=== PATIENT | male | born 1980 | race African-American/Black ===

== ENCOUNTER 2016-12-28 12:59 | Emergency (ER) | payer SELFPAY ==
[~2016-12-28] VITALS: Ht 185.4 cm; Wt 109.0 kg
[2016-12-28 13:24] VITALS: BP 191/108
== END 2016-12-28 16:56 | disposition left against medical advice (07) ==
LOC: ER 13:50
DX: Z53.21 Procedure and treatment not carried out due to patient leaving prior to being seen by health care provider (principal)

== ENCOUNTER 2017-03-08 12:54 | Emergency (ER) | payer MEDICAID ==
[~2017-03-08] VITALS: Ht 182.9 cm; Wt 109.0 kg
[2017-03-08] MEDS ORDERED: IBUPROFEN 800MG TABLET PO ONE (14:15)
[2017-03-08 15:11] VITALS: BP 116/88
== END 2017-03-08 15:12 | disposition home or self-care (01) ==
LOC: ER 14:37
DX: S39.012A Strain of muscle, fascia and tendon of lower back, initial encounter (principal); V49.49XA Driver injured in collision with other motor vehicles in traffic accident, initial encounter; Y93.89 Activity, other specified; Y92.410 Unspecified street and highway as the place of occurrence of the external cause; R03.0 Elevated blood-pressure reading, without diagnosis of hypertension
CPT/HCPCS: 99282

== ENCOUNTER 2018-09-16 00:37 | Emergency (ER) | payer MEDICAID ==
[~2018-09-16] VITALS: Ht 185.4 cm; Wt 118.0 kg
[2018-09-16] MEDS ORDERED: LORAZEPAM 0.5MG TABLET PO ONE (06:30)
[2018-09-16 06:35] VITALS: BP 155/78
== END 2018-09-16 08:36 | disposition home or self-care (01) ==
LOC: ER 00:37
DX: F41.1 Generalized anxiety disorder (principal); I10 Essential (primary) hypertension; F20.9 Schizophrenia, unspecified; Z90.49 Acquired absence of other specified parts of digestive tract
CPT/HCPCS: 99284

== ENCOUNTER 2018-09-25 17:04 | Emergency (ER) | payer MEDICAID ==
[~2018-09-25] VITALS: Ht 185.4 cm; Wt 132.0 kg
[2018-09-26] MEDS ORDERED: IBUPROFEN 600MG TABLET PO ONE (00:30)
[2018-09-26 00:56] LABS: CLARITY URINE CLEAR (CLEAR); COLOR URINE YELLOW (YELLOW); KETONES URINE TRACE (NEGATIVE); LEUKOCYTE ESTERASE URINE 1+ (NEGATIVE); NITRITE URINE NEGATIVE (NEGATIVE); OCCULT BLOOD URINE NEGATIVE (NEGATIVE); PH URINE 5.5 (4.5-8.0); PROTEIN URINE 1+ (NEGATIVE); SPECIFIC GRAVITY URINE 1.028 (1.005-1.030)
[2018-09-26 01:07] LABS: *AMPHETAMINES SCREEN URINE NEGATIVE (NEGATIVE); *BARBITURATES SCREEN URINE NEGATIVE (NEGATIVE); *BENZODIAZEPINES SCREEN URINE NEGATIVE (NEGATIVE); *COCAINE SCREEN URINE NEGATIVE (NEGATIVE); METHADONE URINE SCREEN NEGATIVE (NEGATIVE)
[2018-09-26 01:08] LABS: CANNABINOID URINE SCREEN NEGATIVE (NEGATIVE); OPIATES URINE SCREEN NEGATIVE (NEGATIVE); PHENCYCLIDINE URINE SCREEN NEGATIVE (NEGATIVE)
[2018-09-26 01:20] VITALS: BP 154/84
== END 2018-09-26 01:22 | disposition home or self-care (01) ==
LOC: ER 17:04
DX: S00.83XA Contusion of other part of head, initial encounter (principal); M25.562 Pain in left knee; I10 Essential (primary) hypertension; F20.9 Schizophrenia, unspecified; Z90.49 Acquired absence of other specified parts of digestive tract; X58.XXXA Exposure to other specified factors, initial encounter; Y93.89 Activity, other specified; Y92.810 Car as the place of occurrence of the external cause
CPT/HCPCS: 70486; 73562; 80305; 99284

== ENCOUNTER 2019-01-08 19:51 | Emergency (ER) | payer SELFPAY ==
[~2019-01-08] VITALS: Ht 182.9 cm; Wt 109.0 kg
[2019-01-08] MEDS ORDERED: ALPRAZOLAM 0.25 MG TABLET PO ONE (20:45)
[2019-01-09 05:12] VITALS: BP 140/82
== END 2019-01-09 17:49 | disposition left against medical advice (07) ==
LOC: ER 19:51
DX: B35.3 Tinea pedis (principal); B35.1 Tinea unguium; F41.9 Anxiety disorder, unspecified; I10 Essential (primary) hypertension; Z59.0 Homelessness; Z90.49 Acquired absence of other specified parts of digestive tract; Z87.442 Personal history of urinary calculi; Z98.890 Other specified postprocedural states
CPT/HCPCS: 99283

== ENCOUNTER 2019-02-04 23:44 | Emergency (ER) | payer MEDICAID ==
[~2019-02-04] VITALS: Ht 182.9 cm; Wt 125.0 kg
[2019-02-05 02:30] LABS: BASOPHILS % 0.9 % (0.0-2.0); EOSINOPHILS % 3.1 % (0.0-5.0); HEMATOCRIT. 35.6 % (42.0-52.0); HEMOGLOBIN. 11.8 g/dL (14.0-18.0); MEAN CORPUSCULAR HEMOGLOBIN 27.5 pg (28.0-32.0); MEAN CORPUSCULAR VOLUME 82.9 fL (80.0-94.0); MEAN PLATELET VOLUME 7.9 fl (7.4-10.4); MONOCYTES % 8.9 % (2.0-8.0); NEUTROPHILS % 45.1 % (40.0-76.0); PLATELET 242 x1000/uL (130-400); RED CELL DISTRIBUTION WIDTH 14.7 % (11.6-14.6)
[2019-02-05 02:37] LABS: CHLORIDE 107 mEq/L (98-107)
[2019-02-05 02:41] LABS: ETHANOL BLOOD < 10 mg/dL
[2019-02-05] MEDS ORDERED: IBUPROFEN 600MG TABLET PO STA (02:43)
[2019-02-05 03:17] LABS: CLARITY URINE CLEAR (CLEAR); COLOR URINE YELLOW (YELLOW); KETONES URINE TRACE (NEGATIVE); LEUKOCYTE ESTERASE URINE 1+ (NEGATIVE); NITRITE URINE NEGATIVE (NEGATIVE); OCCULT BLOOD URINE NEGATIVE (NEGATIVE); PH URINE 6.5 (4.5-8.0); PROTEIN URINE TRACE (NEGATIVE); SPECIFIC GRAVITY URINE 1.038 (1.005-1.030)
[2019-02-05 03:32] LABS: *AMPHETAMINES SCREEN URINE NEGATIVE (NEGATIVE); *BARBITURATES SCREEN URINE NEGATIVE (NEGATIVE); *BENZODIAZEPINES SCREEN URINE NEGATIVE (NEGATIVE); *COCAINE SCREEN URINE NEGATIVE (NEGATIVE); METHADONE URINE SCREEN NEGATIVE (NEGATIVE); OPIATES URINE SCREEN PRESUMTIVE POSITIVE (NEGATIVE)
[2019-02-05 03:33] LABS: CANNABINOID URINE SCREEN NEGATIVE (NEGATIVE); PHENCYCLIDINE URINE SCREEN NEGATIVE (NEGATIVE)
[2019-02-05] MEDS ORDERED: POTASSIUM CHLORIDE 20MEQ TABLET SR PO ONE (04:30)
[2019-02-05 05:37] VITALS: BP 130/94
== END 2019-02-05 06:03 | disposition home or self-care (01) ==
LOC: ER 23:44
DX: F11.10 Opioid abuse, uncomplicated (principal); R51 Headache; F17.200 Nicotine dependence, unspecified, uncomplicated; F12.10 Cannabis abuse, uncomplicated; I10 Essential (primary) hypertension; Z90.49 Acquired absence of other specified parts of digestive tract
CPT/HCPCS: 36415; 80048; 80305; 80307; 80320; 80329; 82962; 99283; G0480

== ENCOUNTER 2019-02-05 21:32 | Emergency (ER) | payer MEDICAID ==
[~2019-02-05] VITALS: Ht 182.9 cm; Wt 109.0 kg
[2019-02-06] MEDS ORDERED: IBUPROFEN 600MG TABLET PO STA (01:20)
[2019-02-06 01:35] VITALS: BP 155/82
== END 2019-02-06 01:58 | disposition home or self-care (01) ==
LOC: ER 21:32
DX: B35.3 Tinea pedis (principal); L03.116 Cellulitis of left lower limb; J45.909 Unspecified asthma, uncomplicated; F20.9 Schizophrenia, unspecified; F12.10 Cannabis abuse, uncomplicated
CPT/HCPCS: 99283

== ENCOUNTER 2019-02-10 00:29 | Emergency (ER) | payer MEDICAID ==
[~2019-02-10] VITALS: Ht 182.9 cm; Wt 109.0 kg
[2019-02-10] MEDS ORDERED: ACETAMINOPHEN 325MG TABLET PO ONE (07:00)
[2019-02-10 07:02] LABS: CLARITY URINE CLEAR (CLEAR); COLOR URINE YELLOW (YELLOW); KETONES URINE NEGATIVE (NEGATIVE); LEUKOCYTE ESTERASE URINE NEGATIVE (NEGATIVE); NITRITE URINE NEGATIVE (NEGATIVE); OCCULT BLOOD URINE NEGATIVE (NEGATIVE); PROTEIN URINE NEGATIVE (NEGATIVE); SPECIFIC GRAVITY URINE 1.016 (1.005-1.030); UROBILINOGEN URINE 0.2 E.U./dL (0.2-1.0)
[2019-02-10 07:11] LABS: BASOPHILS % 1.1 % (0.0-2.0); EOSINOPHILS % 3.6 % (0.0-5.0); HEMATOCRIT. 35.8 % (42.0-52.0); HEMOGLOBIN. 11.8 g/dL (14.0-18.0); LYMPHOCYTES % 38.4 % (20.0-50.0); MEAN CORPUSCULAR HEMOGLOBIN 27.4 pg (28.0-32.0); MEAN CORPUSCULAR VOLUME 83.3 fL (80.0-94.0); MEAN PLATELET VOLUME 8.4 fl (7.4-10.4); MONOCYTES % 7.6 % (2.0-8.0); NEUTROPHILS % 49.3 % (40.0-76.0); PLATELET 227 x1000/uL (130-400); RED CELL DISTRIBUTION WIDTH 15.4 % (11.6-14.6)
[2019-02-10 07:39] LABS: *AMPHETAMINES SCREEN URINE NEGATIVE (NEGATIVE); *BARBITURATES SCREEN URINE NEGATIVE (NEGATIVE); *BENZODIAZEPINES SCREEN URINE NEGATIVE (NEGATIVE)
[2019-02-10 07:40] LABS: *COCAINE SCREEN URINE NEGATIVE (NEGATIVE); METHADONE URINE SCREEN NEGATIVE (NEGATIVE); OPIATES URINE SCREEN NEGATIVE (NEGATIVE); PHENCYCLIDINE URINE SCREEN NEGATIVE (NEGATIVE)
[2019-02-10 07:43] LABS: CANNABINOID URINE SCREEN NEGATIVE (NEGATIVE)
[2019-02-10 07:50] LABS: CHLORIDE 108 mEq/L (98-107)
[2019-02-10 07:54] LABS: ETHANOL BLOOD < 10 mg/dL
[2019-02-10 09:39] VITALS: BP 121/58
== END 2019-02-10 11:45 | disposition home or self-care (01) ==
LOC: ER 00:29
DX: B35.3 Tinea pedis (principal); M79.672 Pain in left foot; M79.671 Pain in right foot; F12.10 Cannabis abuse, uncomplicated; I10 Essential (primary) hypertension; Z90.49 Acquired absence of other specified parts of digestive tract; Z98.890 Other specified postprocedural states
CPT/HCPCS: 36415; 80053; 80305; 80307; 80320; 80329; 81003; 85025; 99283; Z7610; G0480

== ENCOUNTER 2019-02-19 00:05 | Emergency (ER) | payer MEDICAID ==
[~2019-02-19] VITALS: Ht 182.9 cm; Wt 122.7 kg
[2019-02-19 01:20] VITALS: BP 152/92
[2019-02-19] MEDS ORDERED: IBUPROFEN 600MG TABLET PO ONE (05:30)
== END 2019-02-19 05:25 | disposition home or self-care (01) ==
LOC: ER 00:05
DX: L03.116 Cellulitis of left lower limb (principal); L03.115 Cellulitis of right lower limb; B35.3 Tinea pedis; K13.79 Other lesions of oral mucosa; K00.0 Anodontia; F17.200 Nicotine dependence, unspecified, uncomplicated; F12.10 Cannabis abuse, uncomplicated; I10 Essential (primary) hypertension; Z90.49 Acquired absence of other specified parts of digestive tract
CPT/HCPCS: 99283

== ENCOUNTER 2019-03-12 16:35 | Inpatient (IN) | payer OTHER, MEDICAID ==
[~2019-03-12] VITALS: Ht 182.9 cm; Wt 120.2 kg
[2019-03-12] MEDS ORDERED: ALBUTEROL (0.083%) 2.5MG/3ML NEB HHN STA (18:08)
[2019-03-12] MEDS ORDERED: IPRATROPIUM BROMIDE (0.02%) 0.5MG/2.5ML NEB HHN STA (18:08)
[2019-03-12] MEDS ORDERED: PREDNISONE 20MG TABLET PO STA (18:08)
[2019-03-12 21:23] LABS: BASOPHILS % 1.5 % (0.0-2.0); EOSINOPHILS % 1.5 % (0.0-5.0); HEMATOCRIT. 38.9 % (42.0-52.0); HEMOGLOBIN. 12.9 g/dL (14.0-18.0); MEAN CORPUSCULAR HEMOGLOBIN 27.7 pg (28.0-32.0); MEAN CORPUSCULAR VOLUME 83.8 fL (80.0-94.0); MEAN PLATELET VOLUME 8.5 fl (7.4-10.4); MONOCYTES % 11.7 % (2.0-8.0); NEUTROPHILS % 45.3 % (40.0-76.0); PLATELET 240 x1000/uL (130-400); RED BLOOD CELL COUNT 4.64 mill/uL (4.7-6.1); RED CELL DISTRIBUTION WIDTH 16.4 % (11.6-14.6)
[2019-03-12 21:28] LABS: CHLORIDE 108 mEq/L (98-107)
[2019-03-12] MEDS ORDERED: ASPIRIN 81MG TABLET PO NR (22:00)
[2019-03-13] MEDS ORDERED: ALBUTEROL (0.5%) 2.5MG/0.5ML NEB HHN ONE (02:30)
[2019-03-13 09:45] VITALS: BP 144/75
[2019-03-13 10:00] VITALS: BP 144/75
[2019-03-13] MEDS ORDERED: FURO80TA87 PO (10:05)
[2019-03-13] MEDS ORDERED: FURO-151 MT (10:05)
[2019-03-13] MEDS ORDERED: ALBU4TAB6 MT (10:06)
[2019-03-13] MEDS ORDERED: IBUP-2077 PO (10:06)
[2019-03-13 12:00] VITALS: BP 136/89
[2019-03-13] MEDS ORDERED: ACETAMINOPHEN 325MG TABLET PO PRN (12:00)
[2019-03-13] MEDS ORDERED: IPRATROPIUM/ALBUTEROL 0.5-3(2.5)MG/3ML NEB INH PRN (12:00)
[2019-03-13] MEDS ORDERED: ONDANSETRON HCL 4MG/2ML INJ IV PRN (12:00)
[2019-03-13] MEDS ORDERED: CLONIDINE 0.1MG TABLET PO PRN (12:00)
[2019-03-13] MEDS: METHYLPREDNISOLONE SOD SUCC 125 MG/2 ML VIAL IV SCH ×3 (13:23→23:10)
[2019-03-13] MEDS: THIAMINE HCL 100MG TABLET PO SCH (13:23)
[2019-03-13] MEDS: ENOXAPARIN 30MG/0.3ML SYR SUBCUT SCH ×2 (13:24→23:10)
[2019-03-13] MEDS: HYDROCODONE/ACETAMINOPHEN 5/325MG TABLET PO PRN (13:25)
[2019-03-13] MEDS ORDERED: METHYLPREDNISOLONE SOD SUCC 125 MG/2 ML VIAL IV SCH (14:00)
[2019-03-13] MEDS ORDERED: POTASSIUM CHLORIDE 20MEQ TABLET SR PO NR (15:00)
[2019-03-13 16:00] VITALS: BP 131/75
[2019-03-13 16:00] LABS: CHLORIDE 108 mEq/L (98-107)
[2019-03-13] MEDS: FUROSEMIDE 40MG TABLET PO SCH (18:37)
[2019-03-13 20:00] VITALS: BP 161/91
[2019-03-14] VITALS (7 sets, daily range): BP systolic 102–164; BP diastolic 52–89
[2019-03-14] MEDS: METHYLPREDNISOLONE SOD SUCC 125 MG/2 ML VIAL IV SCH ×4 (06:23→23:27)
[2019-03-14] MEDS: FUROSEMIDE 40MG TABLET PO SCH ×2 (06:23→17:25)
[2019-03-14 07:24] LABS: HEMATOCRIT. 40.7 % (42.0-52.0); HEMOGLOBIN. 13.3 g/dL (14.0-18.0); MEAN CORPUSCULAR HEMOGLOBIN 27.6 pg (28.0-32.0); MEAN CORPUSCULAR VOLUME 84.4 fL (80.0-94.0); MEAN PLATELET VOLUME 9.6 fl (7.4-10.4); PLATELET 330 x1000/uL (130-400); RED BLOOD CELL COUNT 4.82 mill/uL (4.7-6.1); RED CELL DISTRIBUTION WIDTH 15.9 % (11.6-14.6)
[2019-03-14 08:08] LABS: CHLORIDE 107 mEq/L (98-107)
[2019-03-14 08:26] LABS: TOTAL IRON BINDING CAPACITY 377 ug/dL (250-450)
[2019-03-14] MEDS: THIAMINE HCL 100MG TABLET PO SCH (09:14)
[2019-03-14] MEDS: FOLIC ACID 1MG TABLET PO SCH (09:14)
[2019-03-14] MEDS: DOCUSATE SODIUM 100MG CAPSULE PO PRN (09:15)
[2019-03-14] MEDS: HYDROCODONE/ACETAMINOPHEN 5/325MG TABLET PO PRN (10:31)
[2019-03-14] MEDS: ENOXAPARIN 30MG/0.3ML SYR SUBCUT SCH ×2 (11:58→23:27)
[2019-03-14] MEDS ORDERED: SIMETHICONE 80MG TABLET CHEW PO PRN (17:00)
[2019-03-14] MEDS ORDERED: POLYETHYLENE GLYCOL 3350 (17GM) 1 DOSE PACK PO PRN (17:00)
[2019-03-14] MEDS: MONTELUKAST SODIUM 10MG TABLET PO SCH (17:25)
[2019-03-14 18:44] LABS: PLATELET ESTIMATE NORMAL
[2019-03-14 19:09] LABS: CLARITY URINE CLEAR (CLEAR); COLOR URINE YELLOW (YELLOW); KETONES URINE TRACE (NEGATIVE); LEUKOCYTE ESTERASE URINE NEGATIVE (NEGATIVE); NITRITE URINE NEGATIVE (NEGATIVE); OCCULT BLOOD URINE NEGATIVE (NEGATIVE); PROTEIN URINE NEGATIVE (NEGATIVE); SPECIFIC GRAVITY URINE 1.025 (1.005-1.030); UROBILINOGEN URINE 0.2 E.U./dL (0.2-1.0)
[2019-03-14 19:23] LABS: *AMPHETAMINES SCREEN URINE NEGATIVE (NEGATIVE); *BARBITURATES SCREEN URINE NEGATIVE (NEGATIVE); *BENZODIAZEPINES SCREEN URINE NEGATIVE (NEGATIVE); *COCAINE SCREEN URINE NEGATIVE (NEGATIVE)
[2019-03-14 19:24] LABS: METHADONE URINE SCREEN NEGATIVE (NEGATIVE); OPIATES URINE SCREEN PRESUMTIVE POSITIVE (NEGATIVE)
[2019-03-14 19:25] LABS: CANNABINOID URINE SCREEN NEGATIVE (NEGATIVE); PHENCYCLIDINE URINE SCREEN NEGATIVE (NEGATIVE)
[2019-03-14] MEDS: IPRATROPIUM/ALBUTEROL 0.5-3(2.5)MG/3ML NEB HHN SCH (19:43)
[2019-03-14] MEDS: FAMOTIDINE 20MG TABLET PO SCH (20:50)
[2019-03-14] MEDS: FLUTICASONE PROPIONATE 50MCG/SPRAY BOTTLE BOTHNSTRLS SCH (20:50)
[2019-03-14] MEDS: DIPHENHYDRAMINE 50MG/ML VIAL IV PRN (22:20)
[2019-03-15] MEDS: IPRATROPIUM/ALBUTEROL 0.5-3(2.5)MG/3ML NEB HHN SCH ×4 (01:30→21:18)
[2019-03-15 03:46] VITALS: BP 150/62
[2019-03-15] MEDS: DIPHENHYDRAMINE 50MG/ML VIAL IV PRN ×2 (04:34→22:27)
[2019-03-15 05:37] LABS: HEMATOCRIT. 39.6 % (42.0-52.0); HEMOGLOBIN. 12.9 g/dL (14.0-18.0); MEAN CORPUSCULAR HEMOGLOBIN 27.1 pg (28.0-32.0); MEAN CORPUSCULAR VOLUME 83.6 fL (80.0-94.0); MEAN PLATELET VOLUME 9.5 fl (7.4-10.4); PLATELET 294 x1000/uL (130-400); RED BLOOD CELL COUNT 4.74 mill/uL (4.7-6.1); RED CELL DISTRIBUTION WIDTH 16.5 % (11.6-14.6)
[2019-03-15 05:52] LABS: CHLORIDE 107 mEq/L (98-107)
[2019-03-15] MEDS: FUROSEMIDE 40MG TABLET PO SCH ×2 (06:15→18:16)
[2019-03-15] MEDS: METHYLPREDNISOLONE SOD SUCC 125 MG/2 ML VIAL IV SCH ×3 (06:16→18:17)
[2019-03-15 08:00] VITALS: BP 161/93
[2019-03-15] MEDS: FAMOTIDINE 20MG TABLET PO SCH ×2 (08:35→20:39)
[2019-03-15] MEDS: THIAMINE HCL 100MG TABLET PO SCH (08:35)
[2019-03-15] MEDS: HYDROCODONE/ACETAMINOPHEN 5/325MG TABLET PO PRN ×2 (08:35→22:29)
[2019-03-15] MEDS: FOLIC ACID 1MG TABLET PO SCH (08:35)
[2019-03-15] MEDS: FLUTICASONE PROPIONATE 50MCG/SPRAY BOTTLE BOTHNSTRLS SCH (08:36)
[2019-03-15 12:00] VITALS: BP 164/79
[2019-03-15 13:11] LABS: PLATELET ESTIMATE NORMAL
[2019-03-15] MEDS: LORAZEPAM 2MG/ML CPJ IV PRN ×2 (14:00→22:27)
[2019-03-15] MEDS: ENOXAPARIN 30MG/0.3ML SYR SUBCUT SCH (14:00)
[2019-03-15 16:00] VITALS: BP 157/87
[2019-03-15] MEDS: MONTELUKAST SODIUM 10MG TABLET PO SCH (18:16)
[2019-03-15 20:00] VITALS: BP 157/95
[2019-03-15] MEDS: AMLODIPINE 2.5MG TABLET PO SCH (20:39)
[2019-03-16] VITALS (7 sets, daily range): BP systolic 139–166; BP diastolic 79–85
[2019-03-16] MEDS: ENOXAPARIN 30MG/0.3ML SYR SUBCUT SCH ×3 (00:46→23:06)
[2019-03-16] MEDS: METHYLPREDNISOLONE SOD SUCC 125 MG/2 ML VIAL IV SCH ×3 (00:47→11:44)
[2019-03-16] MEDS: IPRATROPIUM/ALBUTEROL 0.5-3(2.5)MG/3ML NEB HHN SCH ×4 (03:15→20:46)
[2019-03-16] MEDS: DIPHENHYDRAMINE 50MG/ML VIAL IV PRN ×3 (05:17→23:06)
[2019-03-16] MEDS: FUROSEMIDE 40MG TABLET PO SCH ×2 (06:32→16:24)
[2019-03-16] MEDS: AMLODIPINE 2.5MG TABLET PO SCH ×2 (08:47→21:10)
[2019-03-16] MEDS: LISINOPRIL 10MG TABLET PO SCH (08:47)
[2019-03-16] MEDS: METOPROLOL TARTRATE 25MG TABLET PO SCH ×2 (08:48→21:11)
[2019-03-16] MEDS: FOLIC ACID 1MG TABLET PO SCH (08:48)
[2019-03-16] MEDS: THIAMINE HCL 100MG TABLET PO SCH (08:48)
[2019-03-16] MEDS: FAMOTIDINE 20MG TABLET PO SCH (08:49)
[2019-03-16] MEDS: FLUTICASONE PROPIONATE 50MCG/SPRAY BOTTLE BOTHNSTRLS SCH (08:49)
[2019-03-16] MEDS: PANTOPRAZOLE 40MG DR TABLET PO SCH (13:49)
[2019-03-16] MEDS: MONTELUKAST SODIUM 10MG TABLET PO SCH (16:24)
[2019-03-16] MEDS: PREDNISONE 20MG TABLET PO SCH (16:25)
[2019-03-17] VITALS: BP 143/77
[2019-03-17] MEDS: IPRATROPIUM/ALBUTEROL 0.5-3(2.5)MG/3ML NEB HHN SCH ×3 (00:54→14:08)
[2019-03-17 04:00] VITALS: BP 141/58
[2019-03-17] MEDS: DIPHENHYDRAMINE 50MG/ML VIAL IV PRN (05:00)
[2019-03-17] MEDS: HYDROCODONE/ACETAMINOPHEN 5/325MG TABLET PO PRN (06:07)
[2019-03-17] MEDS: FUROSEMIDE 40MG TABLET PO SCH (06:07)
[2019-03-17] MEDS: PANTOPRAZOLE 40MG DR TABLET PO SCH (06:07)
[2019-03-17 07:59] VITALS: BP 154/89
[2019-03-17] MEDS: METOPROLOL TARTRATE 25MG TABLET PO SCH (09:05)
[2019-03-17] MEDS: PREDNISONE 20MG TABLET PO SCH (09:06)
[2019-03-17] MEDS: FOLIC ACID 1MG TABLET PO SCH (09:06)
[2019-03-17] MEDS: THIAMINE HCL 100MG TABLET PO SCH (09:06)
[2019-03-17] MEDS: LISINOPRIL 10MG TABLET PO SCH (09:06)
[2019-03-17] MEDS: AMLODIPINE 2.5MG TABLET PO SCH (09:06)
[2019-03-17] MEDS: FLUTICASONE PROPIONATE 50MCG/SPRAY BOTTLE BOTHNSTRLS SCH (09:06)
[2019-03-17] MEDS: DOCUSATE SODIUM 100MG CAPSULE PO PRN (11:24)
[2019-03-17] MEDS: ENOXAPARIN 30MG/0.3ML SYR SUBCUT SCH (11:25)
[2019-03-17] MEDS ORDERED: SUCRALFATE 1 G/10 ML UDC PO SCH (12:10)
[2019-03-17 15:53] LABS: CHLORIDE 106 mEq/L (98-107)
[2019-03-17 15:56] LABS: CREATINE KINASE 30 IU/L (39-308)
[2019-03-17 15:57] LABS: CREATINE KINASE MB FRACTION < 1.0 ng/mL (0.5-3.6)
[2019-03-18] MEDS ORDERED: FUROSEMIDE 40MG TABLET PO SCH (09:00)
== END 2019-03-17 16:30 | disposition home or self-care (01) | DRG 133 ==
LOC: ER 16:35 → 8WST 03-13 02:30 → EDBEDREQ 03-13 02:38 → EDBEDREQTM 03-13 02:38 → ENRESERV 03-13 07:40
PROVIDERS: ADMIT Internal Medicine Nephrology; ATTEND Internal Medicine Nephrology
DX: J96.00 Acute respiratory failure, unspecified whether with hypoxia or hypercapnia (principal); J68.0 Bronchitis and pneumonitis due to chemicals, gases, fumes and vapors; I42.9 Cardiomyopathy, unspecified; J44.1 Chronic obstructive pulmonary disease with (acute) exacerbation; J45.901 Unspecified asthma with (acute) exacerbation; K21.9 Gastro-esophageal reflux disease without esophagitis; I10 Essential (primary) hypertension; E87.6 Hypokalemia; D72.829 Elevated white blood cell count, unspecified; D64.9 Anemia, unspecified; Z60.2 Problems related to living alone; F41.9 Anxiety disorder, unspecified; Z87.891 Personal history of nicotine dependence; Z82.49 Family history of ischemic heart disease and other diseases of the circulatory system; Z87.01 Personal history of pneumonia (recurrent); Z90.49 Acquired absence of other specified parts of digestive tract; Z59.0 Homelessness; Z79.899 Other long term (current) drug therapy; Z82.41 Family history of sudden cardiac death
CPT/HCPCS: 36415; 71045; 80048; 80305; 82550; 82553; 82728; 83540; 83550; 83880; 84466; 84484; 93005; 93306; 94640; 99285; J1200; J1650; J2060; J2930; J7512; J7611; J7620

== ENCOUNTER 2019-03-19 00:29 | Emergency (ER) | payer MEDICAID ==
[~2019-03-19] VITALS: Ht 182.9 cm; Wt 127.0 kg
[~2019-03-19 00:29] MED LIST: ALBU4TAB6 MT; FURO80TA87 PO; IBUP-2077 PO
[2019-03-19 07:05] LABS: BASOPHILS % 0.6 % (0.0-2.0); EOSINOPHILS % 2.2 % (0.0-5.0); HEMATOCRIT. 38.9 % (42.0-52.0); LYMPHOCYTES % 41.1 % (20.0-50.0); MEAN CORPUSCULAR HEMOGLOBIN 27.8 pg (28.0-32.0); MEAN CORPUSCULAR VOLUME 82.9 fL (80.0-94.0); MEAN PLATELET VOLUME 8.4 fl (7.4-10.4); MONOCYTES % 9.9 % (2.0-8.0); NEUTROPHILS % 46.2 % (40.0-76.0); PLATELET 242 x1000/uL (130-400); RED CELL DISTRIBUTION WIDTH 16.3 % (11.6-14.6)
[2019-03-19 07:12] LABS: CHLORIDE 104 mEq/L (98-107)
[2019-03-19] MEDS ORDERED: ACETAMINOPHEN 325MG TABLET PO ONE (08:30)
[2019-03-19] MEDS ORDERED: LORAZEPAM 1MG TABLET PO ONE (09:00)
[2019-03-19 10:42] VITALS: BP 125/88
== END 2019-03-19 10:48 | disposition home or self-care (01) ==
LOC: ER 00:29
DX: I42.9 Cardiomyopathy, unspecified (principal); R07.89 Other chest pain; I10 Essential (primary) hypertension; J45.909 Unspecified asthma, uncomplicated; J44.9 Chronic obstructive pulmonary disease, unspecified; Z90.49 Acquired absence of other specified parts of digestive tract; Z79.899 Other long term (current) drug therapy; Z87.898 Personal history of other specified conditions
CPT/HCPCS: 36415; 71045; 80053; 83880; 84484; 85025; 85379; 93005; 99284; Z7610

== ENCOUNTER 2019-04-22 22:22 | Emergency (ER) | payer MEDICAID ==
[~2019-04-22] VITALS: Ht 182.9 cm; Wt 120.0 kg
[2019-04-23] MEDS ORDERED: ALBUTEROL (0.083%) 2.5MG/3ML NEB HHN STA (00:36)
[2019-04-23] MEDS ORDERED: PREDNISONE 20MG TABLET PO STA (00:36)
[2019-04-23] MEDS ORDERED: IPRATROPIUM BROMIDE (0.02%) 0.5MG/2.5ML NEB HHN STA (00:36)
[2019-04-23 02:08] VITALS: BP 150/94
== END 2019-04-23 02:09 | disposition home or self-care (01) ==
LOC: ER 22:22
DX: J45.901 Unspecified asthma with (acute) exacerbation (principal); J44.9 Chronic obstructive pulmonary disease, unspecified; I10 Essential (primary) hypertension; Z79.899 Other long term (current) drug therapy; Z90.49 Acquired absence of other specified parts of digestive tract; Z82.49 Family history of ischemic heart disease and other diseases of the circulatory system
CPT/HCPCS: 94640; 99283; J7512; J7611; Z7610

== ENCOUNTER 2019-06-08 20:30 | Emergency (ER) | payer MEDICAID ==
[~2019-06-08] VITALS: Ht 182.9 cm; Wt 109.0 kg
[2019-06-08 21:56] VITALS: BP 177/113
== END 2019-06-08 22:02 | disposition home or self-care (01) ==
LOC: ER 20:30
DX: J45.909 Unspecified asthma, uncomplicated (principal); B35.1 Tinea unguium; B35.3 Tinea pedis; Z76.0 Encounter for issue of repeat prescription; F12.10 Cannabis abuse, uncomplicated; I10 Essential (primary) hypertension; Z90.49 Acquired absence of other specified parts of digestive tract
CPT/HCPCS: 99283

== ENCOUNTER 2019-11-26 22:39 | Emergency (ER) | payer MEDICARE, MEDICAID ==
[~2019-11-26] VITALS: Ht 185.4 cm; Wt 141.0 kg
[2019-11-26 23:51] VITALS: BP 138/100
== END 2019-11-27 00:05 | disposition home or self-care (01) ==
LOC: ER 22:39
DX: F32.9 Major depressive disorder, single episode, unspecified (principal); Z76.0 Encounter for issue of repeat prescription; R00.0 Tachycardia, unspecified; I10 Essential (primary) hypertension; J45.909 Unspecified asthma, uncomplicated; F12.10 Cannabis abuse, uncomplicated
CPT/HCPCS: 99282

== ENCOUNTER 2019-11-30 06:38 | Emergency (ER) | payer MEDICARE, MEDICAID ==
[~2019-11-30] VITALS: Ht 182.9 cm; Wt 110.0 kg
[2019-11-30] MEDS ORDERED: BACITRACIN ZINC OINT UDPKT TOP ONE (07:45)
[2019-11-30 08:30] VITALS: BP 142/89
== END 2019-11-30 15:57 | disposition left against medical advice (07) ==
LOC: ER 06:38
DX: S70.312A Abrasion, left thigh, initial encounter (principal); S70.311A Abrasion, right thigh, initial encounter; L30.4 Erythema intertrigo; I10 Essential (primary) hypertension; Z90.49 Acquired absence of other specified parts of digestive tract; J45.909 Unspecified asthma, uncomplicated; F31.9 Bipolar disorder, unspecified; F12.10 Cannabis abuse, uncomplicated; Z59.0 Homelessness; X58.XXXA Exposure to other specified factors, initial encounter; Y93.89 Activity, other specified; Y92.89 Other specified places as the place of occurrence of the external cause; Y99.8 Other external cause status
CPT/HCPCS: 99281

== ENCOUNTER 2020-06-10 00:02 | Emergency (ER) | payer MEDICARE, MEDICAID ==
[~2020-06-10] VITALS: Ht 182.9 cm; Wt 127.0 kg
[2020-06-10] MEDS ORDERED: CEPHALEXIN 250MG CAPSULE PO ONE (01:00)
[2020-06-10] MEDS ORDERED: HYDROCODONE/ACETAMINOPHEN 5/325MG TABLET PO ONE (01:00)
[2020-06-10 01:05] VITALS: BP 163/116
== END 2020-06-10 01:32 | disposition home or self-care (01) ==
LOC: ER 00:02
DX: S10.86XA Insect bite of other specified part of neck, initial encounter (principal); F31.9 Bipolar disorder, unspecified; J45.909 Unspecified asthma, uncomplicated; F20.9 Schizophrenia, unspecified; I10 Essential (primary) hypertension; Z90.49 Acquired absence of other specified parts of digestive tract; W57.XXXA Bitten or stung by nonvenomous insect and other nonvenomous arthropods, initial encounter; Y93.89 Activity, other specified; Y92.018 Other place in single-family (private) house as the place of occurrence of the external cause
CPT/HCPCS: 99283

== ENCOUNTER 2021-03-30 18:01 | Emergency (ER) | payer MEDICARE, MEDICAID ==
[~2021-03-30] VITALS: Ht 182.9 cm; Wt 109.0 kg
[2021-03-30 18:12] VITALS: BP 179/95
[2021-03-30 19:17] LABS: CLARITY URINE CLEAR (CLEAR); COLOR URINE YELLOW (YELLOW); KETONES URINE TRACE (NEGATIVE); LEUKOCYTE ESTERASE URINE 2+ (NEGATIVE); NITRITE URINE NEGATIVE (NEGATIVE); OCCULT BLOOD URINE NEGATIVE (NEGATIVE); PH URINE 7.5 (4.5-8.0); PROTEIN URINE TRACE (NEGATIVE); SPECIFIC GRAVITY URINE 1.027 (1.005-1.030)
[2021-03-30] MEDS ORDERED: CIPR-263 MT (20:01)
[2021-03-30] MEDS ORDERED: IBUP-2028 MT (20:01)
== END 2021-03-30 20:29 | disposition home or self-care (01) ==
LOC: ER 18:01
DX: N39.0 Urinary tract infection, site not specified (principal); I10 Essential (primary) hypertension; Z87.19 Personal history of other diseases of the digestive system; Z90.49 Acquired absence of other specified parts of digestive tract; Z79.899 Other long term (current) drug therapy
CPT/HCPCS: 81003; 99283

== ENCOUNTER 2021-07-14 01:50 | Emergency (ER) | payer MEDICARE, MEDICAID ==
[~2021-07-14] VITALS: Ht 182.9 cm; Wt 120.0 kg
[~2021-07-14 01:50] MED LIST changes: +CIPR-263 MT; +IBUP-2028 MT
[2021-07-14 01:53] VITALS: BP 168/109
[2021-07-14 02:47] LABS: *AMPHETAMINES SCREEN URINE NEGATIVE (NEGATIVE); *BARBITURATES SCREEN URINE NEGATIVE (NEGATIVE); *BENZODIAZEPINES SCREEN URINE NEGATIVE (NEGATIVE); *COCAINE SCREEN URINE NEGATIVE (NEGATIVE)
[2021-07-14 02:48] LABS: CANNABINOID URINE SCREEN NEGATIVE (NEGATIVE); METHADONE URINE SCREEN NEGATIVE (NEGATIVE); OPIATES URINE SCREEN NEGATIVE (NEGATIVE); PHENCYCLIDINE URINE SCREEN NEGATIVE (NEGATIVE)
[2021-07-14 03:10] LABS: BASOPHILS % 1.1 % (0.0-2.0); EOSINOPHILS % 1.3 % (0.0-5.0); HEMATOCRIT. 45.1 % (42.0-52.0); HEMOGLOBIN. 15.2 g/dL (14.0-18.0); LYMPHOCYTES % 28.6 % (20.0-50.0); MEAN CORPUSCULAR HEMOGLOBIN 28.6 pg (28.0-32.0); MEAN CORPUSCULAR VOLUME 84.7 fL (80.0-94.0); MEAN PLATELET VOLUME 8.5 fl (7.4-10.4); MONOCYTES % 8.8 % (2.0-8.0); NEUTROPHILS % 60.2 % (40.0-76.0); PLATELET 294 x1000/uL (130-400); RED BLOOD CELL COUNT 5.32 mill/uL (4.7-6.1); RED CELL DISTRIBUTION WIDTH 15.5 % (11.6-14.6)
[2021-07-14 03:16] LABS: CHLORIDE 111 mEq/L (98-107)
[2021-07-14] MEDS ORDERED: HYDR25TA MT (03:32)
[2021-07-14] MEDS ORDERED: LORAZEPAM 0.5MG TABLET PO ONE (03:45)
[2021-07-14] MEDS ORDERED: CLINDAMYCIN HCL 150MG CAPSULE PO SCH (06:00)
== END 2021-07-14 04:26 | disposition home or self-care (01) ==
LOC: ER 01:50
DX: F41.9 Anxiety disorder, unspecified (principal); I10 Essential (primary) hypertension; Z90.49 Acquired absence of other specified parts of digestive tract; Z79.899 Other long term (current) drug therapy
CPT/HCPCS: 36415; 71045; 80053; 80305; 83880; 84484; 85025; 93005; 99285

== ENCOUNTER 2021-10-06 23:44 | Emergency (ER) | payer MEDICARE, MEDICAID ==
[~2021-10-06] VITALS: Ht 185.4 cm; Wt 131.0 kg
[~2021-10-06 23:44] MED LIST changes: +HYDR25TA MT
[2021-10-06 23:46] VITALS: BP 170/110
[2021-10-06] MEDS ORDERED: ACETAMINOPHEN 325MG TABLET PO STA (23:48)
[2021-10-07] MEDS ORDERED: LIDOCAINE HCL 1% 20ML VIAL (Pyxis) INJ INFIL ONE
[2021-10-07] MEDS ORDERED: HYDROCHLOROTHIAZIDE 25MG TABLET PO ONE
== END 2021-10-07 00:02 | disposition left against medical advice (07) ==
LOC: ER 23:44
DX: R09.81 Nasal congestion (principal); R05.9 Cough, unspecified; I10 Essential (primary) hypertension; Z90.49 Acquired absence of other specified parts of digestive tract; Z79.899 Other long term (current) drug therapy
CPT/HCPCS: 99281

== ENCOUNTER 2022-10-26 21:08 | Emergency (ER) | payer MEDICARE, MEDICAID ==
[~2022-10-26] VITALS: Ht 182.9 cm; Wt 128.4 kg
[2022-10-26 21:37] VITALS: BP 166/111
[2022-10-27] MEDS ORDERED: MAG355OR21 MT (04:55)
[2022-10-27] MEDS ORDERED: ONDA4TAB50 MT (04:55)
== END 2022-10-27 01:08 | disposition left against medical advice (07) ==
LOC: ER 21:08
DX: R07.89 Other chest pain (principal); Z53.21 Procedure and treatment not carried out due to patient leaving prior to being seen by health care provider
CPT/HCPCS: 93005; 99281

== ENCOUNTER 2022-10-27 01:26 | Emergency (ER) | payer MEDICARE, MEDICAID ==
[~2022-10-27] VITALS: Ht 182.9 cm; Wt 128.4 kg
[2022-10-27] MEDS ORDERED: MAGNESIUM/ALUMINUM HYDROXIDE/SIMETHICONE 30ML UDC PO STA (01:57)
[2022-10-27] MEDS ORDERED: VISCOUS LIDOCAINE 2% 15 ML UDC PO STA (01:57)
[2022-10-27 02:28] LABS: BASOPHILS % 1.2 % (0.0-2.0); EOSINOPHILS % 3.1 % (0.0-5.0); HEMATOCRIT. 38.3 % (42.0-52.0); HEMOGLOBIN. 12.8 g/dL (14.0-18.0); LYMPHOCYTES % 44.7 % (20.0-50.0); MEAN CORPUSCULAR HEMOGLOBIN 27.9 pg (28.0-32.0); MEAN CORPUSCULAR VOLUME 83.7 fL (80.0-94.0); MONOCYTES % 10.8 % (2.0-8.0); NEUTROPHILS % 40.2 % (40.0-76.0); PLATELET 264 x1000/uL (130-400); RED BLOOD CELL COUNT 4.58 mill/uL (4.7-6.1); RED CELL DISTRIBUTION WIDTH 14.5 % (11.6-14.6)
[2022-10-27 02:37] LABS: CHLORIDE 111 mEq/L (98-107); INR 0.9; PROTHROMBIN TIME 10.2 sec (9.6-11.0)
[2022-10-27 02:44] LABS: ETHANOL BLOOD < 10 mg/dL
[2022-10-27] MEDS ORDERED: MAGNESIUM/ALUMINUM HYDROXIDE/SIMETHICONE 30ML UDC ONE (03:55)
[2022-10-27] MEDS ORDERED: VISCOUS LIDOCAINE 2% 15 ML UDC ONE (03:55)
[2022-10-27] MEDS ORDERED: ONDA4TAB50 MT (04:55)
[2022-10-27] MEDS ORDERED: MAG355OR21 MT (04:55)
[2022-10-27] MEDS ORDERED: ACETAMINOPHEN 325MG TABLET PO ONE (05:00)
[2022-10-27 05:18] VITALS: BP 159/81
== END 2022-10-27 05:19 | disposition home or self-care (01) ==
LOC: ER 02:25
DX: K29.70 Gastritis, unspecified, without bleeding (principal); I10 Essential (primary) hypertension; Z68.38 Body mass index [BMI] 38.0-38.9, adult; Z90.49 Acquired absence of other specified parts of digestive tract; Z13.9 Encounter for screening, unspecified
CPT/HCPCS: 36415; 80053; 80320; 84484; 85025; 99284; G0480

== ENCOUNTER 2022-11-05 21:42 | Emergency (ER) | payer MEDICARE, MEDICAID ==
[~2022-11-05] VITALS: Ht 182.9 cm; Wt 122.0 kg
[~2022-11-05 21:42] MED LIST changes: +MAG355OR21 MT; +ONDA4TAB50 MT
[2022-11-05 21:55] VITALS: BP 160/100
== END 2022-11-06 01:21 | disposition left against medical advice (07) ==
LOC: ER 21:42
DX: R06.02 Shortness of breath (principal); Z53.21 Procedure and treatment not carried out due to patient leaving prior to being seen by health care provider
CPT/HCPCS: 93005; 99281

== ENCOUNTER 2024-07-21 18:55 | Emergency (ER) | payer MEDICAID, MEDICARE ==
[~2024-07-21] VITALS: Ht 182.9 cm; Wt 127.0 kg
[~2024-07-21 18:55] MED LIST changes: +NAPR-681 PO
[2024-07-21 19:15] VITALS: O2SAT 98
[2024-07-21 20:18] LABS: CLARITY URINE CLEAR (CLEAR); COLOR URINE YELLOW (YELLOW); GLUCOSE URINE NEGATIVE (NEGATIVE); KETONES URINE NEGATIVE (NEGATIVE); LEUKOCYTE ESTERASE URINE 2+ (NEGATIVE); NITRITE URINE NEGATIVE (NEGATIVE); OCCULT BLOOD URINE NEGATIVE (NEGATIVE); PH URINE 6.5 (4.5-8.0); PROTEIN URINE NEGATIVE (NEGATIVE); SPECIFIC GRAVITY URINE 1.022 (1.005-1.030)
[2024-07-21 20:35] LABS: EOSINOPHILS % 3.3 % (0.0-5.0); HEMATOCRIT. 39.5 % (42.0-52.0); HEMOGLOBIN. 13.3 g/dL (14.0-18.0); LYMPHOCYTES % 30.9 % (20.0-50.0); MEAN CORPUSCULAR HEMOGLOBIN 27.7 pg (28.0-32.0); MEAN CORPUSCULAR HGB CONC 33.6 g/dL (31.0-37.0); MEAN CORPUSCULAR VOLUME 82.4 fL (80.0-94.0); MEAN PLATELET VOLUME 8.2 fl (7.4-10.4); NEUTROPHILS % 55.8 % (40.0-76.0); PLATELET 292 x1000/uL (130-400); RED BLOOD CELL COUNT 4.79 mill/uL (4.7-6.1); RED CELL DISTRIBUTION WIDTH 16.2 % (11.6-14.6); WHITE BLOOD COUNT 5.3 x1000/uL (4.5-11.0)
[2024-07-21 20:35] LABS: *AMPHETAMINES SCREEN URINE NEGATIVE (NEGATIVE); *BARBITURATES SCREEN URINE NEGATIVE (NEGATIVE); *BENZODIAZEPINES SCREEN URINE NEGATIVE (NEGATIVE); *COCAINE SCREEN URINE NEGATIVE (NEGATIVE); CANNABINOID URINE SCREEN NEGATIVE (NEGATIVE); ECSTASY MDMA SCREEN URINE NEGATIVE (NEGATIVE); METHADONE URINE SCREEN NEGATIVE (NEGATIVE); OPIATES URINE SCREEN NEGATIVE (NEGATIVE); PHENCYCLIDINE URINE SCREEN NEGATIVE (NEGATIVE)
[2024-07-21 20:41] LABS: SQUAMOUS EPITHELIAL CELL URINE 1+ /lpf (RARE/1+)
[2024-07-21 20:42] LABS: RBC URINE 0-2 /hpf (0-2)
[2024-07-21 20:43] LABS: BACTERIA URINE TRACE; YEAST URINE NONE SEEN
[2024-07-21 20:46] LABS: CARBON DIOXIDE 28 mEq/L (21-32); CHLORIDE 107 mEq/L (98-107); POTASSIUM 3.9 mEq/L (3.5-5.1); SODIUM 142 mEq/L (136-145)
[2024-07-21 20:52] LABS: CREATININE 1.3 mg/dL (0.6-1.3); GLUCOSE 94 mg/dL (70-105); UREA NITROGEN BLOOD 14 mg/dL (9-23)
[2024-07-21 21:04] LABS: ETHANOL BLOOD < 10 mg/dL (<10)
[2024-07-21] MEDS: TRAZODONE HCL 50MG TABLET PO SCH (21:35)
[2024-07-22] MEDS: DIPHENHYDRAMINE 25MG CAPSULE PO ONE (02:21)
[2024-07-22] MEDS: LEVOFLOXACIN 500MG TABLET PO SCH (09:00)
[2024-07-22 11:07] VITALS: BP 124/76; PULSE 78; RESP 18; TEMP 36.61404; O2SAT 98
[2024-07-22] MEDS ORDERED: LEVO750T68 MT (13:06)
== END 2024-07-22 13:13 | disposition home or self-care (01) ==
LOC: ER 18:55
DX: R45.851 Suicidal ideations (principal); N39.0 Urinary tract infection, site not specified; I10 Essential (primary) hypertension; Z20.822 Contact with and (suspected) exposure to COVID-19; Z79.899 Other long term (current) drug therapy
CPT/HCPCS: 80305; 80048; 81003; 80307; 80329; 80320; 85025; 87086; 36415; 99285; 87426; Q0163; G0480